=== PATIENT | male | born 1990 ===

== ENCOUNTER 2017-09-11 15:49 | Emergency (ER) | payer SELFPAY ==
--- NOTE | 2017-09-11 15:53 | UC ---
Dental HPI - HPI Summary HPI Summary: 26 yo male presents with lower right tooth pain since yesterday. He tells me that he knows he has bad teeth and that his wisdom tooth there is coming in. He is still able to eat and drink, but has pain. Takes ibuprofen for this with good control of pain. Denies fever or chills. - History of Current Complaint Stated Complaint: TOOTH PAIN Time Seen by Provider: 09/11/17 15:53 Hx Obtained From: Patient Onset/Duration: Sudden Onset Severity: Moderate Pain Intensity: 6 Pain Scale Used: 0-10 Numeric - Allergies/Home Medications Allergies/Adverse Reactions: Allergies Allergy/AdvReac Type Severity Reaction Status Date / Time No Known Allergies Allergy Verified 09/11/17 16:07 Home Medications: Home Medications Ibuprofen TAB* [Advil TAB*] 400 mg PO Q6HR PRN 09/11/17 [History Confirmed 09/11] PMH/Surg Hx/FS Hx/Imm Hx - Additional Past Medical History Additional PMH: None Previously Healthy: Yes - Surgical History Surgical History: Yes Surgery Procedure, Year, and Place: LYMPH NODE - BENIGN -NECK - Family History Known Family History: Positive: None - Social History Lives: With Family Alcohol Use: None Substance Use Type: Marijuana Smoking Status (MU): Heavy Every Day Tobacco Smoker Type: Cigarettes Amount Used/How Often: 1 PPD - Immunization History Most Recent Tetanus Shot: Pt thinks recently Review of Systems Constitutional: Negative Skin: Negative Eyes: Negative ENT: Dental Pain Respiratory: Negative Cardiovascular: Negative Neurological: Negative Psychological: Negative All Other Systems Reviewed And Are Negative: Yes Physical Exam - Summary Physical Exam Summary: GENERAL: NAD. WDWN. No pain distress. SKIN: No rashes, sores, lesions, or open wounds. HEENT: Head: AT/NC Nose: NTTP maxillary and frontal sinus. Throat: Posterior oropharynx without exudates, erythema, or tonsillar enlargement. Uvula midline. NECK: Supple. Nontender. No lymphadenopathy. CHEST: No accessory muscle use. Breathing comfortably and in no distress. CV: Pulses intact. Brisk cap refill. NEURO: Alert. PSYCH: Age appropriate behavior. Triage Information Reviewed: Yes Vital Signs: Vital Signs: Temp Pulse Resp BP Pulse Ox 98.8 F 85 18 118/67 96 09/11/17 16:00 09/11/17 16:00 09/11/17 16:00 09/11/17 16:00 09/11/17 16:00 Vital Signs Reviewed: Yes Dental: Positive: Percussion Tenderness @ - Tooth 32, Gross Decay/Caries @ - Throughout, Abscess @ - Tooth 32. Negative: Cellulitis @, Cervical Lymphadenopathy, Bleeding Dental Complaint Course/Dx - Course Course Of Treatment: Tooth 32 dental abscess - Differential Dx/Diagnosis Provider Diagnoses: Tooth 32 dental abscess Discharge - Sign-Out/Discharge Documenting (check all that apply): Patient Departure - Discharge Plan Condition: Stable Disposition: HOME Patient Education Materials: Dental Abscess (ED) Referrals: Glynn Luis MD [Primary Care Provider] - Additional Instructions: If you develop a fever, shortness of breath, chest pain, new or worsening symptoms - please call your PCP or go to the ED. - Billing Disposition and Condition Condition: STABLE Disposition: Home
[2017-09-11 16:07] VITALS: BP 118/67
== END 2017-09-11 16:15 | disposition home or self-care (01) ==
LOC: UCEAST 15:49
DX: K04.7 Periapical abscess without sinus (principal); F17.210 Nicotine dependence, cigarettes, uncomplicated
CPT/HCPCS: 99212; G0463